=== PATIENT | male | born 1970 | race Caucasian/White ===

== ENCOUNTER 2021-06-21 14:43 | Emergency (ER) | payer BC ==
[~2021-06-21] VITALS: Ht 177.8 cm; Wt 122.0 kg
[2021-06-21] MEDS ORDERED: JARDIANCE25 MG PO (15:04)
[2021-06-21] MEDS ORDERED: BENICAR HCT 401 EAC1 PO (15:05)
[2021-06-21] MEDS ORDERED: NORVASC10 MG PO (15:05)
[2021-06-21] MEDS ORDERED: VASCEPA1 GM PO (15:05)
[2021-06-21] MEDS ORDERED: ZETIA10 MG PO (15:05)
[2021-06-21] MEDS ORDERED: OZEMPIC1 MG/0.71 SUBQ (15:06)
[2021-06-21] MEDS ORDERED: TADALAFIL5 MG PO (15:06)
[2021-06-21] MEDS ORDERED: LIPITOR 10 MG10 M1 PO (15:06)
[2021-06-21] MEDS ORDERED: FINASTERIDE1 MG PO (15:06)
[2021-06-21] MEDS ORDERED: VITAMIN D250 MC1 PO (15:06)
[2021-06-21 15:28] LABS: URINE BILIRUBIN NEGATIVE (Negative); URINE BLOOD NEGATIVE (Negative); URINE CLARITY CLEAR; URINE COLOR YELLOW; URINE GLUCOSE-RANDOM 3+ (Negative); URINE KETONES NEGATIVE (Negative); URINE LEUKOCYTES-REFLEX NEGATIVE (Negative); URINE NITRITE-REFLEX NEGATIVE (Negative); URINE PROTEIN NEGATIVE (Negative); URINE UROBILINOGEN 0.2 E.U./dl (0.2-1.0)
[2021-06-21 16:00] LABS: ABSOLUTE EOSINOPHILS 0.3 thou/uL (0.0-0.7); ABSOLUTE LYMPHOCYTES 2.3 thou/uL (0.8-5.3); ABSOLUTE MONOCYTES 1.3 thou/uL (0.0-1.2); ABSOLUTE NEUTROPHILS 8.8 thou/uL (1.6-8.1); BASOPHILS 0.3 %; HEMATOCRIT 51.2 % (42.0-52.0); HEMOGLOBIN 17.3 gm/dL (14.0-18.0); MCH 28.4 pg (26.0-34.0); MCHC 33.8 g/dL (28.0-37.0); MCV 84.1 fL (80.0-100.0); MONOCYTES 10.2 %; NUCLEATED RBCS 0 /100WBC; PLATELET COUNT* 328 thou/uL (150-400); POLYS 69.5 %; RBC 6.09 mil/uL (4.50-6.00); WBC 12.6 thou/uL (4.0-11.0)
[2021-06-21 16:09] LABS: CALCIUM 9.7 mg/dL (8.5-10.1); CREATININE 1.6 mg/dL (0.6-1.3); POTASSIUM 3.7 mmol/L (3.5-5.1)
[2021-06-21 16:13] LABS: TOTAL BILIRUBIN 0.5 mg/dL (<0.1-1.0); TOTAL PROTEIN 7.8 g/dL (6.4-8.2)
[2021-06-21] MEDS ORDERED: ZOFRAN ODT4 MG PO (17:09)
[2021-06-21] MEDS ORDERED: CIPRO500 M1 PO (17:09)
[2021-06-21] MEDS ORDERED: METRONIDAZOLE500 M4 PO (17:09)
[2021-06-21] MEDS ORDERED: HYDROCODON-ACE1 EAC7 PO (17:13)
[2021-06-21 17:41] VITALS: BP 111/62
== END 2021-06-21 17:42 | disposition home or self-care (01) ==
LOC: M.ERS 14:43
PROVIDERS: Nurse Practitioner Family
DX: I88.0 Nonspecific mesenteric lymphadenitis (principal); I10 Essential (primary) hypertension; E11.9 Type 2 diabetes mellitus without complications; E78.5 Hyperlipidemia, unspecified; Z79.899 Other long term (current) drug therapy